=== PATIENT | male | born 1955 | race Caucasian/White ===

== ENCOUNTER 2016-10-14 16:39 | Inpatient (IN) | payer MEDICARE ==
[~2016-10-14] VITALS: Ht 175.3 cm; Wt 102.0 kg
[~2016-10-14 16:39] MED LIST: ALBU8.5H5 INH; AMLO5TAB4 PO; BUDE10.2 INH; CLIN300C93 PO; FLUO20CA19 PO; HYDR1TAB12 PO; LEVO100V PO; LEVO200T5 PO; LIOT5TAB6 PO; LISI40TA PO; OXYC5TAB3 PO; TAMS-11 PO; TEST5POW3 IM; [UNRECOGNIZED DRUG - REMARK]
[2016-10-14] MEDS ORDERED: DILTIAZEM 125 MG in DEXTROSE 5% 100 ML IV SCH (17:03)
[2016-10-14] MEDS ORDERED: SODIUM CHLORIDE 0.9% 1,000 ML IV ONE ×2 (17:03→18:30)
[2016-10-14] MEDS ORDERED: ONDANSETRON 2MG/ML, 2ML ONE (17:24)
[2016-10-14] MEDS ORDERED: ASPIRIN 81 MG TABLET CHEW ONE (17:24)
[2016-10-14] MEDS ORDERED: LORazepam 2 MG/ML, 1ML ONE ×3 (17:25→20:03)
[2016-10-14] MEDS ORDERED: DILTIAZEM 5 MG/ML, 5ML ONE (17:25)
[2016-10-14] MEDS ORDERED: ASPIRIN 81 MG TABLET CHEW PO ONE (17:30)
[2016-10-14] MEDS ORDERED: SODIUM CHLORIDE 0.9% 1,000ML IVBOLUS ONE (17:30)
[2016-10-14] MEDS ORDERED: THIAMINE 100 MG in SODIUM CHLORIDE 0.9% 50 ML IVPB ONE (17:30)
[2016-10-14] MEDS ORDERED: ONDANSETRON 2MG/ML, 2ML IVPush ONE (17:30)
[2016-10-14] MEDS ORDERED: MAGNESIUM SULFATE PMX 2GM/50ML 50 ML IVPB ONE (17:30)
[2016-10-14] MEDS ORDERED: SODIUM CHLORIDE FLUSH 10ML SYR IVF ONE (17:30)
[2016-10-14] MEDS ORDERED: DILTIAZEM 5 MG/ML, 5ML IV ONE (17:30)
[2016-10-14] MEDS: LORazepam 2 MG/ML, 1ML IVPush PRN ×5 (17:33→22:18)
[2016-10-14 17:36] LABS: ASPARTATE AMINO TRANSFERASE 134 U/L (15-37); BLOOD UREA NITROGEN 15 mg/dL (7-18)
[2016-10-14] MEDS ORDERED: SODIUM CHLORIDE FLUSH 10ML SYR IVF PRN (18:30)
[2016-10-14] MEDS ORDERED: POLYETHYLENE GLYCOL 17 GM PACKET PO PRN (19:30)
[2016-10-14] MEDS ORDERED: HEPARIN 5,000 UNITS/ML, 1ML IV ONE (19:30)
[2016-10-14] MEDS ORDERED: BISACODYL 10 MG SUPP PR PRN (19:30)
[2016-10-14] MEDS ORDERED: CHLORDIAZEPOXIDE 25 MG CAPSULE PO PRN (19:30)
[2016-10-14] MEDS ORDERED: TEMPLATE NON-FORMULARY MED. (Albuterol Sulfate** (Albuterol Sulfate Hfa**) 2 PUFF(S)) INH PRN (20:00)
[2016-10-14] MEDS: SODIUM CHLORIDE FLUSH 10ML SYR IVF SCH (22:19)
[2016-10-14] MEDS: AMLODIPINE 5 MG TABLET PO SCH (22:19)
[2016-10-14] MEDS: ONDANSETRON 2MG/ML, 2ML IVP PRN (22:19)
[2016-10-14] MEDS: HEPARIN 25,000 UNITS/500ML PMX 500 ML IV PRN (22:20)
[2016-10-15 00:13] LABS: IS PT STATUS REG ER OR PRE ER? NO
[2016-10-15 01:45] VITALS: BP 134/77
[2016-10-15] MEDS: LORazepam 2 MG/ML, 1ML IVPush PRN ×2 (02:03→05:44)
[2016-10-15] MEDS: HEPARIN 5,000 UNITS/ML, 1ML IV PRN ×3 (05:44→21:11)
[2016-10-15] MEDS: ONDANSETRON 2MG/ML, 2ML IVP PRN (05:45)
[2016-10-15] MEDS ORDERED: LEVOTHYROXINE 125 MCG TABLET PO SCH (06:00)
[2016-10-15 06:03] LABS: ASPARTATE AMINO TRANSFERASE 159 U/L (15-37); BLOOD UREA NITROGEN 13 mg/dL (7-18)
[2016-10-15 06:09] LABS: IS PT STATUS REG ER OR PRE ER? NO
[2016-10-15] MEDS: DILTIAZEM 125 MG in SODIUM CHLORIDE 0.9% 100 ML IV PRN ×2 (07:54→21:09)
[2016-10-15 08:10] VITALS: BP 147/74
[2016-10-15] MEDS: THIAMINE 100MG TABLET PO SCH (08:26)
[2016-10-15] MEDS: SENNA/DOCUSATE TABLET PO SCH (08:26)
[2016-10-15] MEDS: FLUOXETINE 20 MG CAPSULE PO SCH (08:26)
[2016-10-15] MEDS: AMLODIPINE 5 MG TABLET PO SCH ×2 (08:27→21:07)
[2016-10-15] MEDS: TAMSULOSIN 0.4 MG CAP.ER.24H PO SCH (08:27)
[2016-10-15] MEDS: FOLIC ACID 1 MG TABLET PO SCH (08:27)
[2016-10-15] MEDS: FERROUS SULFATE 325 MG TABLET PO SCH (08:27)
[2016-10-15] MEDS: LISINOPRIL 20 MG TABLET PO SCH (08:27)
[2016-10-15] MEDS: MULTIVITAMIN 1 TABLET PO SCH (08:27)
[2016-10-15] MEDS: CHLORDIAZEPOXIDE 25 MG CAPSULE PO SCH ×3 (08:28→21:07)
[2016-10-15] MEDS: SODIUM CHLORIDE FLUSH 10ML SYR IVF SCH ×2 (08:28→21:07)
[2016-10-15] MEDS ORDERED: LORazepam 0.5MG TABLET PO PRN (09:00)
[2016-10-15] MEDS ORDERED: LORazepam 2 MG/ML, 1ML IV PRN ×4 (09:00)
[2016-10-15] MEDS: FLUTICASONE/VILANTEROL 100-25MCG/INH INH SCH (09:00)
[2016-10-15] MEDS ORDERED: LIOTHYRONINE 5 MCG TABLET PO SCH (09:00)
[2016-10-15] MEDS ORDERED: LORazepam 1MG TABLET PO PRN ×3 (09:00)
[2016-10-15 15:46] VITALS: BP 145/72
[2016-10-15] MEDS: LORazepam 1MG TABLET PO PRN (16:12)
[2016-10-15 19:55] VITALS: BP 136/77
[2016-10-15] MEDS: LORazepam 2 MG/ML, 1ML IV PRN ×2 (21:10→23:07)
[2016-10-15] MEDS: HEPARIN 25,000 UNITS/500ML PMX 500 ML IV PRN (21:12)
[2016-10-16 01:35] VITALS: BP 136/85
[2016-10-16] MEDS ORDERED: LORazepam 2 MG/ML, 1ML ONE (01:37)
[2016-10-16] MEDS: LORazepam 2 MG/ML, 1ML IV PRN (01:45)
[2016-10-16 03:20] LABS: BLOOD UREA NITROGEN 6 mg/dL (7-18)
[2016-10-16 03:32] LABS: ASPARTATE AMINO TRANSFERASE 145 U/L (15-37)
[2016-10-16] MEDS: HEPARIN 5,000 UNITS/ML, 1ML IV PRN ×3 (04:14→21:57)
[2016-10-16 07:58] VITALS: BP 144/92
[2016-10-16] MEDS: THIAMINE 100MG TABLET PO SCH (08:11)
[2016-10-16] MEDS: TAMSULOSIN 0.4 MG CAP.ER.24H PO SCH (08:11)
[2016-10-16] MEDS: SENNA/DOCUSATE TABLET PO SCH (08:12)
[2016-10-16] MEDS: LISINOPRIL 20 MG TABLET PO SCH (08:12)
[2016-10-16] MEDS: MULTIVITAMIN 1 TABLET PO SCH (08:12)
[2016-10-16] MEDS: FLUOXETINE 20 MG CAPSULE PO SCH (08:12)
[2016-10-16] MEDS: AMLODIPINE 5 MG TABLET PO SCH ×2 (08:12→21:40)
[2016-10-16] MEDS: FOLIC ACID 1 MG TABLET PO SCH (08:13)
[2016-10-16] MEDS: LEVOTHYROXINE 100 MCG TABLET PO SCH (08:13)
[2016-10-16] MEDS: FERROUS SULFATE 325 MG TABLET PO SCH (08:13)
[2016-10-16] MEDS: CHLORDIAZEPOXIDE 25 MG CAPSULE PO SCH ×3 (08:13→21:00)
[2016-10-16] MEDS: SODIUM CHLORIDE FLUSH 10ML SYR IVF SCH ×2 (08:13→20:36)
[2016-10-16] MEDS: DILTIAZEM 125 MG in SODIUM CHLORIDE 0.9% 100 ML IV PRN (10:52)
[2016-10-16] MEDS: FLUTICASONE/VILANTEROL 100-25MCG/INH INH SCH (10:53)
[2016-10-16] MEDS: HEPARIN 25,000 UNITS/500ML PMX 500 ML IV PRN (15:02)
[2016-10-16 16:48] VITALS: BP 132/77
[2016-10-16 19:56] VITALS: BP 152/77
[2016-10-17] MEDS: LORazepam 1MG TABLET PO PRN ×3 (00:48→21:46)
[2016-10-17 01:38] VITALS: BP 139/91
[2016-10-17] MEDS: DILTIAZEM 125 MG in SODIUM CHLORIDE 0.9% 100 ML IV PRN (02:27)
[2016-10-17] MEDS: LEVOTHYROXINE 100 MCG TABLET PO SCH (05:09)
[2016-10-17] MEDS: HEPARIN 5,000 UNITS/ML, 1ML IV PRN ×3 (05:12→19:33)
[2016-10-17] MEDS: HEPARIN 25,000 UNITS/500ML PMX 500 ML IV PRN ×2 (05:14→19:24)
[2016-10-17] MEDS ORDERED: SODIUM CHLORIDE NASAL SPRAY 45ML BOTTLE NAS PRN (08:00)
[2016-10-17 08:24] VITALS: BP 137/101
[2016-10-17] MEDS: THIAMINE 100MG TABLET PO SCH (09:00)
[2016-10-17] MEDS: SENNA/DOCUSATE TABLET PO SCH (09:00)
[2016-10-17] MEDS: FLUTICASONE/VILANTEROL 100-25MCG/INH INH SCH (09:00)
[2016-10-17] MEDS: FERROUS SULFATE 325 MG TABLET PO SCH (09:01)
[2016-10-17] MEDS: TAMSULOSIN 0.4 MG CAP.ER.24H PO SCH (09:01)
[2016-10-17] MEDS: FOLIC ACID 1 MG TABLET PO SCH (09:01)
[2016-10-17] MEDS: LISINOPRIL 20 MG TABLET PO SCH (09:01)
[2016-10-17] MEDS: CHLORDIAZEPOXIDE 25 MG CAPSULE PO SCH ×3 (09:01→21:46)
[2016-10-17] MEDS: AMLODIPINE 5 MG TABLET PO SCH ×2 (09:01→21:46)
[2016-10-17] MEDS: FLUOXETINE 20 MG CAPSULE PO SCH (09:01)
[2016-10-17] MEDS: MULTIVITAMIN 1 TABLET PO SCH (09:01)
[2016-10-17] MEDS: SODIUM CHLORIDE FLUSH 10ML SYR IVF SCH ×2 (09:02→21:46)
[2016-10-17] MEDS: ACETAMINOPHEN 325 MG TABLET PO PRN (09:34)
[2016-10-17 14:04] VITALS: BP 107/71
[2016-10-17] MEDS ORDERED: WARFARIN 5 MG TABLET PO-COUM ONE (19:00)
[2016-10-17 20:17] VITALS: BP 130/87
[2016-10-18 01:39] VITALS: BP 131/82
[2016-10-18 01:48] LABS: ASPARTATE AMINO TRANSFERASE 25 U/L (15-37); BLOOD UREA NITROGEN 7 mg/dL (7-18)
[2016-10-18] MEDS ORDERED: DILTIAZEM 125 MG in SODIUM CHLORIDE 0.9% 100 ML IV PRN (02:00)
[2016-10-18] MEDS: HEPARIN 5,000 UNITS/ML, 1ML IV PRN (02:38)
[2016-10-18] MEDS: LORazepam 1MG TABLET PO PRN ×2 (03:14→07:33)
[2016-10-18] MEDS: HEPARIN 25,000 UNITS/500ML PMX 500 ML IV PRN (07:32)
[2016-10-18] MEDS: LEVOTHYROXINE 100 MCG TABLET PO SCH (07:33)
[2016-10-18 08:15] VITALS: BP 128/80
[2016-10-18] MEDS: SENNA/DOCUSATE TABLET PO SCH (09:00)
[2016-10-18] MEDS: FLUTICASONE/VILANTEROL 100-25MCG/INH INH SCH (09:16)
[2016-10-18] MEDS: DILTIAZEM 30 MG TABLET PO SCH ×4 (09:17→21:26)
[2016-10-18] MEDS: FLUOXETINE 20 MG CAPSULE PO SCH (09:17)
[2016-10-18] MEDS: POTASSIUM CHLORIDE 20 MEQ TAB.ER.PRT PO SCH ×2 (09:17→17:17)
[2016-10-18] MEDS: LISINOPRIL 20 MG TABLET PO SCH (09:17)
[2016-10-18] MEDS: MULTIVITAMIN 1 TABLET PO SCH (09:17)
[2016-10-18] MEDS: THIAMINE 100MG TABLET PO SCH (09:17)
[2016-10-18] MEDS: AMLODIPINE 5 MG TABLET PO SCH ×2 (09:17→21:26)
[2016-10-18] MEDS: TAMSULOSIN 0.4 MG CAP.ER.24H PO SCH (09:18)
[2016-10-18] MEDS: FERROUS SULFATE 325 MG TABLET PO SCH (09:18)
[2016-10-18] MEDS: FOLIC ACID 1 MG TABLET PO SCH (09:18)
[2016-10-18] MEDS: CHLORDIAZEPOXIDE 25 MG CAPSULE PO SCH ×3 (09:18→21:26)
[2016-10-18] MEDS: SODIUM CHLORIDE FLUSH 10ML SYR IVF SCH ×2 (09:18→21:27)
[2016-10-18 16:39] VITALS: BP 124/84
[2016-10-18] MEDS ORDERED: WARFARIN 5 MG TABLET PO-COUM ONE (18:00)
[2016-10-18 19:15] VITALS: BP 119/80
[2016-10-19 01:52] VITALS: BP 117/68
[2016-10-19 05:03] LABS: BLOOD UREA NITROGEN 7 mg/dL (7-18)
[2016-10-19 05:40] VITALS: BP 141/92
[2016-10-19] MEDS: DILTIAZEM 30 MG TABLET PO SCH ×2 (05:43→11:33)
[2016-10-19] MEDS: LEVOTHYROXINE 100 MCG TABLET PO SCH (05:44)
[2016-10-19 05:55] LABS: DIFF TOTAL CELLS COUNTED 100 CELL DIFF
[2016-10-19 06:01] LABS: VERIFY COUNTS? YES
[2016-10-19 06:02] LABS: ANISOCYTOSIS 1+; POLYCHROMASIA 1+
[2016-10-19 07:23] VITALS: BP 121/91
[2016-10-19] MEDS: THIAMINE 100MG TABLET PO SCH (10:00)
[2016-10-19] MEDS: TAMSULOSIN 0.4 MG CAP.ER.24H PO SCH (10:00)
[2016-10-19] MEDS: SENNA/DOCUSATE TABLET PO SCH (10:00)
[2016-10-19] MEDS: FLUOXETINE 20 MG CAPSULE PO SCH (10:01)
[2016-10-19] MEDS: LISINOPRIL 20 MG TABLET PO SCH (10:01)
[2016-10-19] MEDS: MULTIVITAMIN 1 TABLET PO SCH (10:01)
[2016-10-19] MEDS: FOLIC ACID 1 MG TABLET PO SCH (10:01)
[2016-10-19] MEDS: FLUTICASONE/VILANTEROL 100-25MCG/INH INH SCH (10:01)
[2016-10-19] MEDS: CHLORDIAZEPOXIDE 25 MG CAPSULE PO SCH ×2 (10:01→17:07)
[2016-10-19] MEDS: AMLODIPINE 5 MG TABLET PO SCH ×2 (10:01→21:55)
[2016-10-19] MEDS: FERROUS SULFATE 325 MG TABLET PO SCH (10:01)
[2016-10-19] MEDS: SODIUM CHLORIDE FLUSH 10ML SYR IVF SCH ×2 (10:03→21:55)
[2016-10-19] MEDS: LORazepam 1MG TABLET PO PRN ×3 (11:33→21:55)
[2016-10-19 13:32] VITALS: BP 141/87
[2016-10-19] MEDS: DILTIAZEM 60 MG TABLET PO SCH (17:06)
[2016-10-19 19:47] VITALS: BP 125/83
[2016-10-20 00:51] VITALS: BP 132/81
[2016-10-20] MEDS: DILTIAZEM 60 MG TABLET PO SCH ×4 (00:54→23:29)
[2016-10-20] MEDS: CHLORDIAZEPOXIDE 25 MG CAPSULE PO SCH ×4 (00:54→21:20)
[2016-10-20 02:30] VITALS: BP 133/88
[2016-10-20] MEDS: LORazepam 1MG TABLET PO PRN ×2 (02:51→08:59)
[2016-10-20] MEDS: LEVOTHYROXINE 100 MCG TABLET PO SCH (05:42)
[2016-10-20 07:10] VITALS: BP 119/71
[2016-10-20] MEDS: ACETAMINOPHEN 325 MG TABLET PO PRN (08:59)
[2016-10-20] MEDS: SODIUM CHLORIDE FLUSH 10ML SYR IVF SCH ×2 (09:00→19:36)
[2016-10-20] MEDS: FLUTICASONE/VILANTEROL 100-25MCG/INH INH SCH (09:00)
[2016-10-20] MEDS: LISINOPRIL 20 MG TABLET PO SCH (09:01)
[2016-10-20] MEDS: MULTIVITAMIN 1 TABLET PO SCH (09:01)
[2016-10-20] MEDS: AMLODIPINE 5 MG TABLET PO SCH (09:01)
[2016-10-20] MEDS: THIAMINE 100MG TABLET PO SCH (09:02)
[2016-10-20] MEDS: FOLIC ACID 1 MG TABLET PO SCH (09:02)
[2016-10-20] MEDS: FERROUS SULFATE 325 MG TABLET PO SCH (09:02)
[2016-10-20] MEDS: SENNA/DOCUSATE TABLET PO SCH (09:03)
[2016-10-20] MEDS: TAMSULOSIN 0.4 MG CAP.ER.24H PO SCH (09:03)
[2016-10-20] MEDS: FLUOXETINE 20 MG CAPSULE PO SCH (09:03)
[2016-10-20] MEDS ORDERED: LEVO100T PO (10:06)
[2016-10-20] MEDS ORDERED: DILT60TA27 PO (10:06)
[2016-10-20] MEDS ORDERED: FOLI-17 PO (10:06)
[2016-10-20] MEDS ORDERED: THIA100T6 PO (10:06)
[2016-10-20] MEDS ORDERED: MAGNESIUM SULFATE PMX 2GM/50ML 50 ML IV ONE (13:00)
[2016-10-20 14:09] VITALS: BP 115/76
[2016-10-20 20:10] VITALS: BP 123/88
[2016-10-20 23:28] VITALS: BP 144/83
[2016-10-21 01:39] VITALS: BP 111/77
[2016-10-21] MEDS: ACETAMINOPHEN 325 MG TABLET PO PRN (04:11)
[2016-10-21] MEDS: LORazepam 1MG TABLET PO PRN (04:11)
[2016-10-21] MEDS: LEVOTHYROXINE 100 MCG TABLET PO SCH (05:34)
[2016-10-21 06:03] LABS: BLOOD UREA NITROGEN 12 mg/dL (7-18)
[2016-10-21 06:27] VITALS: BP 122/78
[2016-10-21] MEDS: SENNA/DOCUSATE TABLET PO SCH (09:00)
[2016-10-21] MEDS: CHLORDIAZEPOXIDE 25 MG CAPSULE PO SCH (09:00)
[2016-10-21] MEDS: THIAMINE 100MG TABLET PO SCH (09:42)
[2016-10-21] MEDS: FLUOXETINE 20 MG CAPSULE PO SCH (09:42)
[2016-10-21] MEDS: FLUTICASONE/VILANTEROL 100-25MCG/INH INH SCH (09:42)
[2016-10-21] MEDS: FOLIC ACID 1 MG TABLET PO SCH (09:42)
[2016-10-21] MEDS: MULTIVITAMIN 1 TABLET PO SCH (09:42)
[2016-10-21] MEDS: LISINOPRIL 20 MG TABLET PO SCH (09:42)
[2016-10-21] MEDS: TAMSULOSIN 0.4 MG CAP.ER.24H PO SCH (09:43)
[2016-10-21] MEDS: DILTIAZEM 60 MG TABLET PO SCH (09:43)
[2016-10-21] MEDS: SODIUM CHLORIDE FLUSH 10ML SYR IVF SCH (09:43)
[2016-10-21] MEDS: FERROUS SULFATE 325 MG TABLET PO SCH (09:43)
== END 2016-10-21 12:12 | disposition home or self-care (01) | DRG 308 ==
LOC: ED 18:41 → EDIP 18:45 → 5SO 20:59
PROVIDERS: ADMIT Internal Medicine; ATTEND Internal Medicine
DX: I48.0 Paroxysmal atrial fibrillation (principal); I50.33 Acute on chronic diastolic (congestive) heart failure; D68.69 Other thrombophilia; E44.1 Mild protein-calorie malnutrition; J98.11 Atelectasis; F10.239 Alcohol dependence with withdrawal, unspecified; I24.8 Other forms of acute ischemic heart disease; J96.10 Chronic respiratory failure, unspecified whether with hypoxia or hypercapnia; K70.10 Alcoholic hepatitis without ascites; E66.01 Morbid (severe) obesity due to excess calories; F31.9 Bipolar disorder, unspecified; G47.33 Obstructive sleep apnea (adult) (pediatric); G47.419 Narcolepsy without cataplexy; I11.0 Hypertensive heart disease with heart failure; I35.8 Other nonrheumatic aortic valve disorders; J44.9 Chronic obstructive pulmonary disease, unspecified; N40.0 Benign prostatic hyperplasia without lower urinary tract symptoms; Z66 Do not resuscitate; Z79.899 Other long term (current) drug therapy; Z88.0 Allergy status to penicillin; Z68.33 Body mass index [BMI] 33.0-33.9, adult
CPT/HCPCS: 36415; 71010; 80048; 80053; 82728; 83540; 83550; 83735; 83880; 84439; 84443; 84484; 85025; 85520; 85610; 85730; 93005; 93306; 96365; 96367; 96375; 96376; J1644; J2405; J3411; J2060; J3475; J7030

== ENCOUNTER 2018-07-31 06:29 | Emergency (ER) | payer MEDICARE ==
[~2018-07-31] VITALS: Ht 172.7 cm; Wt 105.0 kg
[~2018-07-31 06:29] MED LIST changes: +CLIN300C8 PO; -CLIN300C93 PO; +DILT60TA27 PO; +FOLI-17 PO; +LEVO100T PO; +LIOT5TAB10 PO; -LIOT5TAB6 PO; +THIA100T67 PO
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
[2018-07-31 07:01] LABS: BASOPHILS # (AUTO) 0.03 x10^3/uL (0-0.1); BASOPHILS % (AUTO) 0 % (0-1); EOSINOPHILS # (AUTO) 0.02 x10^3/uL (0-0.4); EOSINOPHILS % (AUTO) 0 % (1-7); LYMPHOCYTES # (AUTO) 1.89 x10^3/uL (1-3.4); LYMPHOCYTES % (AUTO) 21 % (22-44); MD NO; MEAN CORPUSCULAR HEMOGLOBIN 26.1 pg (27.5-34.5); MEAN CORPUSCULAR VOLUME 81.6 fL (81-97); MEAN PLATELET VOLUME 7.3 fL (7.4-10.4); MONOCYTES # (AUTO) 0.61 x10^3/uL (0.2-0.8); MONOCYTES % (AUTO) 7 % (2-9); NEUTROPHILS # (AUTO) 6.59 x10^3/uL (1.8-6.8); NEUTROPHILS % (AUTO) 72 % (42-75); PLATELET COUNT 295 x10^3/uL (130-400); RED BLOOD COUNT 6.53 x10^6/uL (4.38-5.82); RED CELL DISTRIBUTION WIDTH 20.3 % (9.4-14.8)
[2018-07-31 07:06] VITALS: BP 135/94
--- NOTE | 2018-07-31 07:06 | NUR ---
REPORT FROM JOSE NIELSEN. PT IS ALERT, ORIENTED, WITH NAD. PT IS CONNECTED TO THE MONITOR. CALL LIGHT WITHIN REACH.
[2018-07-31 07:13] LABS: ALANINE AMINOTRANSFERASE 34 U/L (12-78); ALBUMIN 4.1 g/dL (3.4-5.0); ANION GAP 16 mmol/L (5-15); CALCIUM 9.1 mg/dL (8.5-10.1); CHLORIDE 108 mmol/L (98-107); CREATININE 1.16 mg/dL (0.7-1.3)
--- NOTE | 2018-07-31 07:16 | NUR ---
Pt given water to drink. Heath prado MD.
[2018-07-31 07:18] LABS: ALKALINE PHOSPHATASE 90 U/L (45-117); BILIRUBIN,TOTAL 0.7 mg/dL (0.2-1.0); TOTAL PROTEIN 7.7 g/dL (6.4-8.2); TROPONIN I 0.028 ng/mL (0.000-0.045)
[2018-07-31 07:40] LABS: INTERNATIONAL NORMALIZED RATIO 1.02 (0.93-1.1); PROTHROMBIN TIME 10.8 Seconds (9.6-11.5)
--- NOTE | 2018-07-31 07:46 | NUR ---
Pt is resting in bed with eyes closed, respirations equal and non labored. NAD. Pt is connected to the monitor. Call light within reach.
--- NOTE | 2018-07-31 07:57 | NUR ---
Patient given discharge instructions and they have confirmed that they understand the instructions. Patient ambulatory with steady gait.
== END 2018-07-31 07:59 | disposition home or self-care (01) ==
LOC: ED 07:28
DX: F51.01 Primary insomnia (principal); F10.120 Alcohol abuse with intoxication, uncomplicated; J44.9 Chronic obstructive pulmonary disease, unspecified; I10 Essential (primary) hypertension; I48.91 Unspecified atrial fibrillation; Z72.9 Problem related to lifestyle, unspecified; F31.9 Bipolar disorder, unspecified; F17.200 Nicotine dependence, unspecified, uncomplicated
CPT/HCPCS: 36415; 71045; 80053; 83880; 84484; 85025; 85610; 93005; 99284

== ENCOUNTER → 2018-08-15 | Outpatient (CLI) | payer MEDICARE ==
[~2018-08-15] MED LIST changes: +AMLO-150 PO; +ASPI325T17 PO; +ATOR80TA PO; +CHOL200024 PO; +CYAN100072 PO; +FERR-46 PO; +LURA20TA PO; +NALO12.5 PO; +UBID100C24 PO
[2018-08-15 10:33] LABS: CHLORIDE 103 mmol/L (98-107)
[2018-08-15 10:34] LABS: ALANINE AMINOTRANSFERASE 33 U/L (12-78); ALBUMIN 3.6 g/dL (3.4-5.0); ANION GAP 3 mmol/L (5-15); CALCIUM 8.9 mg/dL (8.5-10.1); CREATININE 0.87 mg/dL (0.7-1.3)
[2018-08-15 10:35] LABS: ALKALINE PHOSPHATASE 77 U/L (45-117); BILIRUBIN,TOTAL 0.5 mg/dL (0.2-1.0); TOTAL PROTEIN 6.7 g/dL (6.4-8.2)
[2018-08-15 10:37] LABS: MEAN CORPUSCULAR HEMOGLOBIN 26.2 pg (27.5-34.5); MEAN CORPUSCULAR HGB CONC 32.1 g/dL (33.2-36.2); MEAN CORPUSCULAR VOLUME 81.7 fL (81-97); PLATELET COUNT 251 x10^3/uL (130-400); RED BLOOD COUNT 5.09 x10^6/uL (4.38-5.82); RED CELL DISTRIBUTION WIDTH 20.3 % (9.4-14.8)
[2018-08-15 11:11] LABS: MD YES
[2018-08-15 11:16] LABS: EOS% (MANUAL) 15 % (1-7); LYMPH#(MANUAL) 1.04 x10^3/uL (1-3.4); LYMPHS% (MANUAL) 26 % (22-44); MONOS#(MANUAL) 0.76 x10^3/uL (0.3-2.7); MONOS% (MANUAL) 19 % (2-9); SEGS% (MANUAL) 40 % (42-75)
[2018-08-15 11:17] LABS: ANISOCYTOSIS 1+; POLYCHROMASIA 1+
[2018-08-15 11:19] LABS: <PLATELET ESTIMATE> ADEQUATE; <PLT MORPHOLOGY> NORMAL PLT MORPH; OVALOCYTES 1+
== END | disposition home or self-care (01) ==
LOC: STAR 09:02
PROVIDERS: ATTEND Orthopaedic Surgery
DX: Z01.818 Encounter for other preprocedural examination (principal); M25.562 Pain in left knee; M79.672 Pain in left foot; M79.671 Pain in right foot; I25.10 Atherosclerotic heart disease of native coronary artery without angina pectoris; M81.0 Age-related osteoporosis without current pathological fracture; E07.89 Other specified disorders of thyroid; Z79.899 Other long term (current) drug therapy
CPT/HCPCS: 36415; 80053; 85025; 87081; 93005

== ENCOUNTER 2018-08-18 14:50 | Emergency (ER) | payer MEDICARE ==
[~2018-08-18] VITALS: Ht 172.7 cm; Wt 105.2 kg
[~2018-08-18 14:50] MED LIST changes: -HYDR1TAB12 PO; +HYDR1TAB13 PO
[2018-08-18 15:00] VITALS: BP 137/92
--- NOTE | 2018-08-18 16:54 | NUR ---
PT CHECKED INTO ER WHEN HE SHOULD HAVE CHECKED INTO CT.
== END 2018-08-18 16:56 | disposition left against medical advice (07) ==
LOC: ED 16:50
DX: R22.9 Localized swelling, mass and lump, unspecified (principal)
CPT/HCPCS: 99281

== ENCOUNTER 2018-08-18 15:34 | Outpatient (CLI) | payer MEDICARE ==
[~2018-08-18 15:34] MED LIST changes: +OMNIPAQUE 350 MG/ML, 100ML BOTTLE ONE
== END 2018-08-18 23:59 | disposition home or self-care (01) ==
LOC: RAD 15:34
PROVIDERS: ATTEND Orthopaedic Surgery
DX: M48.56XA Collapsed vertebra, not elsewhere classified, lumbar region, initial encounter for fracture (principal); I25.10 Atherosclerotic heart disease of native coronary artery without angina pectoris; G95.89 Other specified diseases of spinal cord; K57.30 Diverticulosis of large intestine without perforation or abscess without bleeding; M51.46 Schmorl's nodes, lumbar region; Q53.112 Unilateral inguinal testis; R22.2 Localized swelling, mass and lump, trunk; M81.0 Age-related osteoporosis without current pathological fracture
CPT/HCPCS: 71260; 74177; Q9967

== ENCOUNTER → 2018-09-02 | Outpatient (CLI) | payer MEDICARE ==
[~2018-09-02] MED LIST changes: +LIDOCAINE-MPF 1%, 5ML ONE; -OMNIPAQUE 350 MG/ML, 100ML BOTTLE ONE
== END | disposition home or self-care (01) ==
LOC: RAD 09:09
PROVIDERS: ATTEND Orthopaedic Surgery
DX: L02.211 Cutaneous abscess of abdominal wall (principal)
CPT/HCPCS: 20206; 77012; 88305

== ENCOUNTER → 2018-10-03 | Outpatient (CLI) | payer MEDICARE ==
[~2018-10-03] MED LIST changes: +AMPH20CA7 PO; +HYDR30CA3 PO; -LIDOCAINE-MPF 1%, 5ML ONE; +OXYC15TA PO
[2018-10-03 12:12] LABS: MICROSCOPIC AUTO
[2018-10-03 12:13] LABS: CULTURE INDICATED? YES
[2018-10-03 12:19] LABS: MEAN CORPUSCULAR HEMOGLOBIN 30.2 pg (27.5-34.5); MEAN CORPUSCULAR HGB CONC 33.6 g/dL (33.2-36.2); MEAN CORPUSCULAR VOLUME 89.7 fL (81-97); MEAN PLATELET VOLUME 7.3 fL (7.4-10.4); PLATELET COUNT 382 x10^3/uL (130-400); RED BLOOD COUNT 5.06 x10^6/uL (4.38-5.82); RED CELL DISTRIBUTION WIDTH 20.8 % (9.4-14.8)
[2018-10-03 12:23] LABS: ALANINE AMINOTRANSFERASE 25 U/L (12-78); ALBUMIN 3.9 g/dL (3.4-5.0); ANION GAP 4 mmol/L (5-15); CALCIUM 8.8 mg/dL (8.5-10.1); CHLORIDE 105 mmol/L (98-107); CREATININE 1.04 mg/dL (0.7-1.3)
[2018-10-03 12:25] LABS: ALKALINE PHOSPHATASE 94 U/L (45-117); BILIRUBIN,TOTAL 0.7 mg/dL (0.2-1.0)
[2018-10-03 12:26] LABS: MD YES
[2018-10-03 12:34] LABS: BASOS#(MANUAL) 0.06 x10^3/uL (0-0.1); BASOS% (MANUAL) 1 % (0-1); EOS#(MANUAL) 0.39 x10^3/uL (0.0-0.4); EOS% (MANUAL) 7 % (1-7); LYMPH#(MANUAL) 1.68 x10^3/uL (1-3.4); LYMPHS% (MANUAL) 30 % (22-44); MONOS#(MANUAL) 1.12 x10^3/uL (0.3-2.7); MONOS% (MANUAL) 20 % (2-9); SEG#(MANUAL) 2.35 x10^3/uL (1.8-6.8); SEGS% (MANUAL) 42 % (42-75)
[2018-10-03 12:35] LABS: <PLATELET ESTIMATE> ADEQUATE; <PLT MORPHOLOGY> NORMAL PLT MORPH; ANISOCYTOSIS 1+; OVALOCYTES 1+
== END | disposition home or self-care (01) ==
LOC: STAR 11:03
PROVIDERS: ATTEND Orthopaedic Surgery
DX: Z01.818 Encounter for other preprocedural examination (principal); M25.562 Pain in left knee
CPT/HCPCS: 36415; 80053; 81001; 85025; 87081; 87086; 87147; 93005

== ENCOUNTER 2019-05-26 03:52 | Emergency (ER) | payer MEDICARE ==
[~2019-05-26] VITALS: Ht 170.2 cm; Wt 100.0 kg
[~2019-05-26 03:52] MED LIST changes: -LEVO100V PO; +LEVO100V8 PO
[2019-05-26 04:00] VITALS: BP 115/67
--- NOTE | 2019-05-26 04:11 | NUR ---
Patient transported by gurney into room. Patient attempted to transfer himself, rolled fci over into prone position. Patient required ED RN and EMS to physically move patient into place. Patient is slurring his words, difficult to arouse requiring painful stimuli to gain consciousness not maintained for longer than 30 seconds. Patient smells of urine and alcohol. Patient's drawers are soaked for being incontinent of urine. Provider to bedside, relayed EMS report. Patient had signficant other call EMS for transportion, requesting specifically "Percocet for pain." EMS also reports patient was informed given his reduced mental status likely related to alcohol intoxication narcotics wouldn't be prescribed. Patient still requested to arrive to ED. Midlevel provider at bedside attempted to communicate, patient not responding to verbal stimulation, not answering provider. Provider with RN's assistance assessed patient's knee based on EMS report. Orders placed for imaging. Patient attached to pulsatile oxygen monitor. Saturations at 94% with supplemental oxygen. Blood pressures within normal limits. (see Triage Flowsheet.) Awaiting xray of knee and read by radiology.
--- NOTE | 2019-05-26 04:54 | NUR ---
Patient back from xray. Awaiting radiologist reading
== END 2019-05-26 06:39 | disposition home or self-care (01) ==
LOC: ED 05:16
DX: M25.562 Pain in left knee (principal); F10.10 Alcohol abuse, uncomplicated; I10 Essential (primary) hypertension; J44.9 Chronic obstructive pulmonary disease, unspecified; I48.91 Unspecified atrial fibrillation; Y90.9 Presence of alcohol in blood, level not specified
CPT/HCPCS: 99283

== ENCOUNTER 2019-06-06 10:03 | Observation (INO) | payer MEDICARE ==
[~2019-06-06] VITALS: Ht 170.2 cm; Wt 105.7 kg
--- NOTE | 2019-06-06 10:08 | NUR ---
CALLED FOR TRIAGE "HE IN THE BR"
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
[2019-06-06 11:25] LABS: BASOPHILS # (AUTO) 0.05 x10^3/uL (0-0.1); BASOPHILS % (AUTO) 1 % (0-1); EOSINOPHILS % (AUTO) 3 % (1-7); LYMPHOCYTES # (AUTO) 0.88 x10^3/uL (1-3.4); LYMPHOCYTES % (AUTO) 11 % (22-44); MD NO; MEAN CORPUSCULAR HEMOGLOBIN 30.7 pg (27.5-34.5); MEAN CORPUSCULAR HGB CONC 32.8 g/dL (33.2-36.2); MEAN CORPUSCULAR VOLUME 93.4 fL (81-97); MEAN PLATELET VOLUME 6.5 fL (7.4-10.4); MONOCYTES % (AUTO) 11 % (2-9); NEUTROPHILS # (AUTO) 5.93 x10^3/uL (1.8-6.8); NEUTROPHILS % (AUTO) 75 % (42-75); PLATELET COUNT 361 x10^3/uL (130-400); RED BLOOD COUNT 4.66 x10^6/uL (4.38-5.82); RED CELL DISTRIBUTION WIDTH 14.3 % (9.4-14.8)
[2019-06-06 11:37] LABS: ALANINE AMINOTRANSFERASE 65 U/L (12-78); ALBUMIN 2.4 g/dL (3.4-5.0); ANION GAP 7 mmol/L (5-15); CALCIUM 7.9 mg/dL (8.5-10.1); CHLORIDE 116 mmol/L (98-107); CREATININE 0.79 mg/dL (0.7-1.3)
[2019-06-06 11:39] LABS: ALKALINE PHOSPHATASE 87 U/L (45-117); BILIRUBIN,TOTAL 0.3 mg/dL (0.2-1.0); TOTAL PROTEIN 5.2 g/dL (6.4-8.2)
--- NOTE | 2019-06-06 11:42 | NUR ---
INSTRUCTED PT FOR UA. PT KEEPS FALLING ASLEEP.
--- NOTE | 2019-06-06 12:01 | NUR ---
COLLECTED UA. PT IN XR.
[2019-06-06 12:15] LABS: MICROSCOPIC NOT IND
[2019-06-06 12:19] LABS: CULTURE INDICATED? NO
[2019-06-06] MEDS ORDERED: POTASSIUM CHLORIDE 20 MEQ TAB.ER.PRT ONE (12:28)
[2019-06-06] MEDS ORDERED: NS + 40MEQ KCL 1,000 ML IV ONE (12:28)
[2019-06-06] MEDS: POTASSIUM CHLORIDE 20 MEQ TAB.ER.PRT PO ONE (12:30)
--- NOTE | 2019-06-06 12:33 | NUR ---
IV ESTABLISHED. ORDERING MEDS FROM PHARMACY. ENGINEHOUSE [employer]RAK[employer] APPLIED. PT IS DROWSY. HARD TO STAY AWAKE
[2019-06-06] MEDS ORDERED: POTASSIUM CHLORIDE 40 MEQ in SODIUM CHLORIDE 0.9% 500 ML IV ONE (13:00)
--- NOTE | 2019-06-06 13:26 | NUR ---
PT TOLERATED PO K. PT KEEPS ASKING "WHAT IS WRONG W ME" RN EDUCATES ABOUT POC. VS STABLE. FLUIDS INFUSING
--- NOTE | 2019-06-06 14:02 | NUR ---
PT RESTING IN BED, CALL LIGHT IN REACH. K INFUSING ON PUMP.
[2019-06-06 15:01] LABS: ALBUMIN 2.5 g/dL (3.4-5.0); ANION GAP 4 mmol/L (5-15); CALCIUM 7.8 mg/dL (8.5-10.1); CHLORIDE 116 mmol/L (98-107); CREATININE 0.74 mg/dL (0.7-1.3)
--- NOTE | 2019-06-06 15:22 | NUR ---
AT BEDSIDE EXAMING PT. POC TO ADMIT AND OBSERVE, K INFUSING. CT ORDERED. PT IS SOMNOLENT, AROUSABLE BUT SLEEPY.
[2019-06-06 15:32] LABS: TROPONIN I 0.017 ng/mL (0.000-0.045)
[2019-06-06 16:59] LABS: AMPHETAMINE SCREEN, URINE Negative (Negative); BARBITURATE SCREEN, URINE Negative (Negative); BENZODIAZEPINE SCREEN, URINE Negative (Negative); CANNABINOID SCREEN, URINE Negative (Negative); COCAINE SCREEN, URINE Negative (Negative); METHADONE SCREEN, URINE Negative (Negative); OPIATE SCREEN, URINE Negative (Negative)
[2019-06-06] MEDS ORDERED: hydrALAzine 20 MG/ML, 1ML IVPush PRN (17:00)
[2019-06-06] MEDS ORDERED: ACETAMINOPHEN 325 MG TABLET PO PRN (17:00)
[2019-06-06] MEDS ORDERED: LABETALOL 5MG/ML, 20ML IVPush PRN (17:00)
[2019-06-06] MEDS ORDERED: ONDANSETRON 2MG/ML, 2ML IVPush PRN (17:00)
[2019-06-06] MEDS ORDERED: THIAMINE 200 MG in SODIUM CHLORIDE 0.9% 50 ML IV ONE (17:00)
--- NOTE | 2019-06-06 17:31 | NUR ---
REPORT TO [facility] AT BEDSIDE. READY TO GO
[2019-06-06 18:19] VITALS: BP 138/98
[2019-06-06 19:19] VITALS: BP 143/98
[2019-06-06] MEDS: POTASSIUM CHLORIDE 40 MEQ in D5%-LACTATED RINGERS 1,000 ML IV SCH (19:23)
[2019-06-06 19:43] LABS: ANION GAP 5 mmol/L (5-15); CALCIUM 7.8 mg/dL (8.5-10.1); CHLORIDE 117 mmol/L (98-107); CREATININE 0.77 mg/dL (0.7-1.3)
[2019-06-07 01:17] VITALS: BP 132/92
[2019-06-07 02:22] LABS: CLOSTRIDIUM DIFFICILE ANTIGEN NEGATIVE; CLOSTRIDIUM DIFFICILE TOXIN NEGATIVE (Negative)
[2019-06-07 06:44] LABS: BASOPHILS # (AUTO) 0.05 x10^3/uL (0-0.1); BASOPHILS % (AUTO) 1 % (0-1); EOSINOPHILS # (AUTO) 0.31 x10^3/uL (0-0.4); EOSINOPHILS % (AUTO) 4 % (1-7); LYMPHOCYTES # (AUTO) 1.09 x10^3/uL (1-3.4); LYMPHOCYTES % (AUTO) 13 % (22-44); MD NO; MEAN CORPUSCULAR HEMOGLOBIN 31.2 pg (27.5-34.5); MEAN CORPUSCULAR HGB CONC 32.5 g/dL (33.2-36.2); MEAN CORPUSCULAR VOLUME 96.1 fL (81-97); MEAN PLATELET VOLUME 7.2 fL (7.4-10.4); MONOCYTES # (AUTO) 0.64 x10^3/uL (0.2-0.8); MONOCYTES % (AUTO) 8 % (2-9); NEUTROPHILS # (AUTO) 6.44 x10^3/uL (1.8-6.8); NEUTROPHILS % (AUTO) 76 % (42-75); PLATELET COUNT 342 x10^3/uL (130-400); RED BLOOD COUNT 4.39 x10^6/uL (4.38-5.82)
[2019-06-07 06:54] LABS: ANION GAP 6 mmol/L (5-15); CALCIUM 7.8 mg/dL (8.5-10.1); CHLORIDE 112 mmol/L (98-107); CREATININE 0.72 mg/dL (0.7-1.3)
[2019-06-07] MEDS ORDERED: POTASSIUM CHLORIDE 20 MEQ TAB.ER.PRT PO ONE (08:00)
[2019-06-07] MEDS: THIAMINE 100MG TABLET PO SCH (08:31)
[2019-06-07] MEDS: ALBUTEROL/IPRATROPIUM 2.5MG/0.5MG, 3 ML NPPB PRN ×3 (08:44→22:00)
[2019-06-07 09:40] VITALS: BP 124/88
[2019-06-07] MEDS: BACLOFEN 10 MG TABLET PO SCH ×2 (11:22→20:18)
[2019-06-07 13:00] VITALS: BP 138/93
[2019-06-07] MEDS: POTASSIUM CHLORIDE 40 MEQ in D5%-LACTATED RINGERS 1,000 ML IV SCH (13:20)
[2019-06-07] MEDS ORDERED: ALBUTEROL SULFATE 2.5 MG/3 ML NPPB PRN (13:30)
[2019-06-07] MEDS ORDERED: GADOTERATE 10 MMOL/20 ML SYR ONE (19:00)
[2019-06-07 19:34] VITALS: BP 136/91
[2019-06-07] MEDS ORDERED: ATORVASTATIN 80 MG TABLET PO SCH (21:00)
[2019-06-08] MEDS: POTASSIUM CHLORIDE 40 MEQ in D5%-LACTATED RINGERS 1,000 ML IV SCH ×2 (01:40→11:59)
[2019-06-08 01:50] VITALS: BP 132/84
[2019-06-08] MEDS ORDERED: BACL20TA PO (02:56)
[2019-06-08] MEDS ORDERED: LEVOTHYROXINE 200 MCG TABLET PO SCH (06:00)
[2019-06-08 06:49] VITALS: BP 150/107
[2019-06-08] MEDS ORDERED: AMLODIPINE 5 MG TABLET PO SCH (09:00)
[2019-06-08] MEDS ORDERED: ASPIRIN 325 MG TABLET PO SCH (09:00)
[2019-06-08] MEDS ORDERED: LURASIDONE 20 MG TABLET PO SCH (09:00)
[2019-06-08] MEDS ORDERED: TAMSULOSIN 0.4 MG CAP.ER.24H PO SCH (09:00)
[2019-06-08] MEDS ORDERED: CYANOCOBALAMIN 1,000 MCG TABLET PO SCH (09:00)
[2019-06-08] MEDS ORDERED: CHOLECALCIFEROL 1,000 UNIT TABLET PO SCH (09:00)
[2019-06-08] MEDS ORDERED: FLUOXETINE HCL 20 MG CAPSULE PO SCH (09:00)
[2019-06-08] MEDS ORDERED: LISINOPRIL 40 MG TABLET PO SCH (09:00)
[2019-06-08] MEDS ORDERED: FERROUS SULFATE 325 MG TABLET PO SCH (09:00)
[2019-06-08] MEDS: THIAMINE 100MG TABLET PO SCH (09:13)
[2019-06-08] MEDS: BACLOFEN 10 MG TABLET PO SCH (09:14)
[2019-06-08 12:03] VITALS: BP 132/88
== END 2019-06-08 13:12 | disposition home or self-care (01) ==
LOC: ED 10:54 → EDIP 16:51 → INTOOBSV 16:51 → 4WST 18:18 → DCLOUNGE 06-08 13:08
PROVIDERS: ADMIT Hospitalist; ATTEND Hospitalist
DX: G47.33 Obstructive sleep apnea (adult) (pediatric) (principal); E44.0 Moderate protein-calorie malnutrition; J96.10 Chronic respiratory failure, unspecified whether with hypoxia or hypercapnia; E87.6 Hypokalemia; E66.01 Morbid (severe) obesity due to excess calories; I48.91 Unspecified atrial fibrillation; F31.9 Bipolar disorder, unspecified; E87.1 Hypo-osmolality and hyponatremia; N40.0 Benign prostatic hyperplasia without lower urinary tract symptoms; R41.82 Altered mental status, unspecified; F10.20 Alcohol dependence, uncomplicated; Z79.899 Other long term (current) drug therapy
CPT/HCPCS: 36415; 70450; 70553; 74021; 80048; 80053; 80307; 81003; 82040; 82140; 83036; 83690; 83735; 84100; 84443; 84484; 85025; 87324; 89055; 93005; 94640; 96365; 96366; 96368; 99285; A9575; G0378; J3411; J3480; J7040; J7121; J7613; J7620; 96374